=== PATIENT | female | born 1950 | race Caucasian/White ===

== ENCOUNTER 2018-07-28 10:05 | Emergency (ER) | payer OTHER ==
[~2018-07-28] VITALS: Ht 152.4 cm; Wt 81.7 kg
[~2018-07-28 10:05] MED LIST: ASPI81EC PO; Aspirin EC81 MG PO; B-1100 MG PO; CHOL10002 PO; FENO48; FISH1000; Fenofibrate134 MG PO; Flagyl500 MG PO; GLYB5 PO; HUMALOG; HUMALOG KW200 UNIT/1 SQ; IBUP800 PO; INSULANI SC; INSULANPEN SC; LEVFLO500 PO; LOSARTAN PO; LOSHYD PO; Lovastatin20 MG PO; METF500; METF500 PO; METO25ER; METO25ER PO; NAPR500 PO; OMEP20ER PO; OXYACE5T PO; Percocet 5-3251 EACH PO; VITAMIN D PO; [UNRECOGNIZED DRUG - OTHER]
== END 2018-07-28 11:28 | disposition home or self-care (01) ==
LOC: ER 10:05
DX: S16.1XXA Strain of muscle, fascia and tendon at neck level, initial encounter (principal); S39.012A Strain of muscle, fascia and tendon of lower back, initial encounter; Z88.5 Allergy status to narcotic agent; Z88.4 Allergy status to anesthetic agent; Z79.4 Long term (current) use of insulin; Z79.82 Long term (current) use of aspirin; V43.52XA Car driver injured in collision with other type car in traffic accident, initial encounter
CPT/HCPCS: 72040; 72100; 99284-25

== ENCOUNTER → 2020-04-05 | Outpatient (CLI) | payer MEDICARE, OTHER ==
[2020-04-05 08:39] LABS: Source, Urine Clean Catch
[2020-04-05 08:41] LABS: BASOPHILS ABSOLUTE AUTO 0.02 K/mm3 (0.00-0.23); BASOPHILS PERCENT AUTO 0 % (0-2); EOSINOPHILS ABSOLUTE AUTO 0.07 K/mm3 (0.00-0.68); EOSINOPHILS PERCENT AUTO 1 % (0-6); Hematocrit 40.7 % (33.0-51.0); Hemoglobin 13.6 g/dL (11.5-16.0); IMMATURE GRAN ABSOLUTE AUTO 0.04 K/mm3 (0.00-0.10); IMMATURE GRAN PERCENT AUTO 0 % (0-1); LYMPHOCYTES ABSOLUTE AUTO 1.62 K/mm3 (0.84-5.20); LYMPHOCYTES PERCENT AUTO 18 % (21-46); MONOCYTES ABSOLUTE AUTO 0.58 K/mm3 (0.16-1.47); MONOCYTES PERCENT AUTO 6 % (4-13); Mean Corpuscular HGB 28.3 pg (26.0-34.0); Mean Corpuscular HGB Conc 33.4 g/dL (31.5-36.5); Mean Corpuscular Volume 85 fL (80-100); NEUTROPHILS ABSOLUTE AUTO 6.73 K/mm3 (1.96-9.15); NEUTROPHILS PERCENT AUTO 74 % (41-73); Platelet Count 268 K/mm3 (150-400); RDW Coefficient Variation 13.5 % (11.7-14.2); RDW Standard Deviation 41.4 fL (35.1-46.3); White Blood Cell Count 9.06 K/mm3 (4.00-11.30)
[2020-04-05 08:44] LABS: Bacteria Few /hpf; Squamous Epithelial Cells Mod /hpf (Few); White Blood Cells, Urine 0-2 /hpf (0-5)
[2020-04-05 08:49] LABS: Alanine Aminotransfer (ALT/SGP 47 U/L (12-78); Albumin, Blood 3.9 g/dL (3.4-5.0); Alk Phos 59 U/L (40-126); Anion Gap 14 mmol/L (6-16); Aspartate Aminotrans (AST/SGOT 29 U/L (12-37); Bilirubin, Total 0.4 mg/dL (0.1-1.0); Blood Urea Nitrogen 19 mg/dL (8-24); Bun/Creatinine Ratio 27.9 (12.0-20.0); CO2, Blood 28 mmol/L (21-32); Calcium, Blood 9.3 mg/dL (8.5-10.1); Chloride, Blood 101 mmol/L (98-108); Creatinine, Blood 0.68 mg/dL (0.40-1.00); Glomerular Filtration Rate >60 (60-); Glucose, Blood 132 mg/dL (70-99); Potassium, Blood 3.8 mmol/L (3.5-5.5); Sodium, Blood 143 mmol/L (136-145); Total Protein, Blood 7.9 g/dL (6.4-8.2)
[2020-04-05 20:30] LABS: Campylobacter Sp Not Detected (NOT DETECT)
[2020-04-05 20:31] LABS: Adenovirus F 40/41 Not Detected (NOT DETECT); Astrovirus Not Detected (NOT DETECT); Cryptosporidium Not Detected (NOT DETECT); Cyclospora Cayetanensis Not Detected (NOT DETECT); E. Coli O157 Not Detected (NOT DETECT); Entamoeba Histolytica Not Detected (NOT DETECT); Enteroaggregative E. coli-EAEC Not Detected (NOT DETECT); Enteropathogenic E. coli-EPEC Not Detected (NOT DETECT); Enterotoxigenic E. coli-ETEC Not Detected (NOT DETECT); Giardia Lamblia Not Detected (NOT DETECT); Norovirus GI/GII Not Detected (NOT DETECT); Plesiomonas Shigelloides Not Detected (NOT DETECT); Rotavirus A Not Detected (NOT DETECT); Salmonella Sp Not Detected (NOT DETECT); Sapovirus Not Detected (NOT DETECT); Shiga Toxin-prod E. coli-STEC Not Detected (NOT DETECT); Shigella/Enteroin E. coli-EIEC Not Detected (NOT DETECT); Vibrio Cholerae Not Detected (NOT DETECT); Vibrio Sp Not Detected (NOT DETECT); Yersinia Enterocolitica Not Detected (NOT DETECT)
== END | disposition home or self-care (01) ==
LOC: LAB EV 08:33 → LAB SHORT 08:33
PROVIDERS: General Practice
DX: R10.31 Right lower quadrant pain (principal); R31.21 Asymptomatic microscopic hematuria; R19.7 Diarrhea, unspecified
CPT/HCPCS: 0097U; 80053; 81015; 85025

== ENCOUNTER 2023-05-27 07:10 | Inpatient (IN) | payer MEDICARE, OTHER ==
[~2023-05-27] VITALS: Ht 154.9 cm; Wt 69.4 kg
[2023-05-27 08:15] LABS: BASOPHILS ABSOLUTE AUTO 0.03 K/mm3 (0.00-0.23); BASOPHILS PERCENT AUTO 0 % (0-2); EOSINOPHILS ABSOLUTE AUTO 0.15 K/mm3 (0.00-0.68); EOSINOPHILS PERCENT AUTO 2 % (0-6); Hematocrit 40.1 % (33.0-51.0); Hemoglobin 13.3 g/dL (11.5-16.0); IMMATURE GRAN ABSOLUTE AUTO 0.04 K/mm3 (0.00-0.10); IMMATURE GRAN PERCENT AUTO 1 % (0-1); LYMPHOCYTES ABSOLUTE AUTO 1.52 K/mm3 (0.84-5.20); LYMPHOCYTES PERCENT AUTO 21 % (21-46); MONOCYTES ABSOLUTE AUTO 0.46 K/mm3 (0.16-1.47); MONOCYTES PERCENT AUTO 6 % (4-13); Mean Corpuscular HGB 28.3 pg (26.0-34.0); Mean Corpuscular HGB Conc 33.2 g/dL (31.5-36.5); Mean Corpuscular Volume 85 fL (80-100); Mean Platelet Volume 9.2 fL (9.1-12.4); NEUTROPHILS ABSOLUTE AUTO 4.98 K/mm3 (1.96-9.15); NEUTROPHILS PERCENT AUTO 69 % (41-73); Platelet Count 290 K/mm3 (150-400); RDW Coefficient Variation 13.4 % (11.7-14.2); RDW Standard Deviation 42.2 fL (35.1-46.3); White Blood Cell Count 7.18 K/mm3 (4.00-11.30)
[2023-05-27 08:31] LABS: Albumin/Globulin Ratio 1.1 (0.8-1.8); Bilirubin, Total 0.4 mg/dL (0.1-1.0); Bun/Creatinine Ratio 37.9 (12.0-20.0); Calcium, Blood 9.6 mg/dL (8.5-10.1); Creatinine, Blood 0.4 mg/dL (0.40-1.00); Globulin, Blood 3.5 g/dL (2.2-4.0); Magnesium, Blood 1.9 mg/dL (1.6-2.4); Potassium, Blood 4.5 mmol/L (3.5-5.5); Total Protein, Blood 7.5 g/dL (6.4-8.2)
[2023-05-27] MEDS ORDERED: INSULANI SC (12:55)
[2023-05-27] MEDS ORDERED: METF500C PO (12:59)
[2023-05-27] MEDS ORDERED: ROSU10TA PO (13:01)
[2023-05-27] MEDS ORDERED: OZEMPIC1 MG/0.72 SC (13:04)
[2023-05-27] MEDS ORDERED: LOSA25 PO (13:05)
--- NOTE | 2023-05-27 13:35 | NUR ---
RECEIVED REPORT AND ASSUMED CARE OF PT ON MEDICAL FLOOR. PT A&OX4. VSS, RECHECKED PT'S BLOOD GLUCOSE AT HER REQUEST, IT REMAINS WITHIN THE NORMAL RANGE. PT'S HOME MEDICATIONS REVIEWED AND UPDATED. PT IS A STANDBY ASSIST TO THE BATHROOM. NPO AT THIS TIME [place] [id number] TODAY. STAFF AT BEDSIDE PERFORMING CAROTID ULTRASOUND AT THIS TIME. CALL LIGHT IN REACH, FAMILY AT BEDSIDE.
[2023-05-27 17:17] VITALS: BP 143/79
--- NOTE | 2023-05-27 19:04 | NUR ---
SHIFT SUMMARY: ALTAF IS A&OX4. VSS, NO ACUTE EVENTS THIS SHIFT. THE FIRST PORTION OF THE STRESS TEST WAS COMPLETED TODAY, PT TO TAKE IN NO CAFFEINE AFTER 1900 TODAY AND BE NPO AFTER MIDNIGHT. SHE IS A STANDBY ASSIST FOR SAFETY REASONS ONLY, SHE DOES NOT REQUIRE ANY ASSISTANCE. TELE IN PLACE, NSR THIS SHIFT. SHE IS URINATING WITHOUT DIFFICULTY AND TOLERATING PO INTAKE WELL. FAMILY AT BEDSIDE. SHE IS LYING IN BED WITH THE CALL LIGHT IN REACH. SHE DOES PREFER TO SIT UP IN THE RECLINER, STATING THAT IT IS MORE COMFORTABLE. REPORT GIVEN TO GEOSCIENCE LABORATORY TECHNICIAN RN.
[2023-05-27 19:29] VITALS: BP 109/66
--- NOTE | 2023-05-27 21:32 | NUR ---
TELEMETRY EVENT: LEYDI SHANNON REPORTS 20 SECOND PAUSE AND REPORTS TO GO INTO PATIENT ROOM. PATIENT ASYMPTOMATIC AND ALERT AND ORIENTED HAVING CONVERSATION. SHE REPORTS SHE FELL ASLEEP IN RECLINER. HOSPITALIST BREN ALEXANDER NOTIFIED AND REPORTS HE WILL LOOK AT HER TELEMETRY STRIP AT THIS TIME. ALSO ORDERED PATIENT LANTUS 28 UNITS BEDTIME AND REPORTS TO GIVE ONLY HALF. PATIENT NPO AFTER MIDNIGHT FOR STRESS TEST PART TWO. TM.
--- NOTE | 2023-05-27 22:17 | NUR ---
HOSPITALIST DR CASPER IN ROOM FOR ASSESSMENT: REPORTS PATIENT IS TO BE NPO, HOLD LOVENOX, TRANSFER TO PCU, LIKELY PACEMAKER TOMORROW. CHARGE NURSE NOTIFIED.
--- NOTE | 2023-05-27 22:33 | NUR ---
TRANSFER TO PCU 11. REPORT GIVEN TO PJ FONSECA. PATIENT TRANSFERING WITH BELONGINGS VIA W/C.
[2023-05-27 22:35] VITALS: BP 141/66
[2023-05-27 23:19] VITALS: BP 145/78
--- NOTE | 2023-05-27 23:58 | NUR ---
TELE EVENT NOTIFIED BY TELE OF A 24 SECOND PAUSE. RHYTHM APPEARS TO BE A 2ND DEGREE TYPE II WITH P WAVES THAT ARE NOT CONDUCTING. UPON ARRIVAL TO THE ROOM, PT IS SURROUNDED BY MULTIPLE STAFF AND IS BEGINNING TO OPEN HER EYES. RHYTHM IS BACK TO SINUS IN THE 60'S AND PT DENIES SYMPTOMS. ZOLL AT THE BEDSIDE AND MONITORING, PADS ARE ON THE PATIENT. DR. CASPER NOTIFIED AND PLAN IS TO CONINUE MONITORING, USE EXTERNAL PACING WHEN NEEDED, AND PREP FOR PACEMAKER IN THE AM. PRIMARY RN FENG UPDATED.
[2023-05-28 04:30] VITALS: BP 134/74
--- NOTE | 2023-05-28 06:33 | NUR ---
SHIFT SUMMARY PATIENT ALERT AND ORIENTED X4. TRANSFERRED TO PCU 11 FROM MEDICAL FLOOR AFTER HAVING A 21.8 SECOND PAUSE. PATIENT HAD A SECOND PAUSE LASTING 24 SECONDS AT 2347, PATIENT WAS ASLEEP AND UNAWARE OF THE EPISODE, WAS ABLE TO BE ROUSED EASILY. NO OTHER EVENTS NOTED. PACER PADS PLACED ON PATIENT AND PLUGGED INTO ZOLL WHICH IS ON TO MONITOR. ATROPINE AT BEDSIDE. PATIENT ON ROOM AIR WITH NO COMPLAINTS OF SHORTNESS OF BREATH. BLOOD PRESSURE STABLE. PATIENT ASSESSED FOR IGNITION RISK AND EDUCATED ON FIRE SAFETY IN THE HOSPITAL. WILL CONTINUE TO MONITOR. CALL LIGHT WITHIN REACH.
[2023-05-28 08:00] VITALS: BP 130/67
[2023-05-28 11:21] VITALS: BP 144/78
[2023-05-28 13:05] VITALS: BP 161/83
--- NOTE | 2023-05-28 13:06 | NUR ---
PAUSE HIGH RAW SUGAR BOILER NOTIFYING STAFF OF PT PAUSE. THIS RN & TILE PRESSER TO PT RM. PT LAYING IN BED, HAD TO BE WOKEN. HIGH RAW SUGAR BOILER REPORTING PT W/ 17 SECOND PAUSE (SEE EVENT STRIP). PT REPORTING FEELING TIRED & DIZZY. VSS. ZOLL AT BEDSIDE. TILE PRESSER NOTIFIED MD GONZALES.
--- NOTE | 2023-05-28 19:00 | NUR ---
RETURNED FROM [employer] SPECIALIST FROM PACER PLACEMENT. DRESSING TO LEFT CHEST WALL DRY AND INTACT. SLING PLACE ON ARM AND EDUCATED REGARDING NOT LIFTING LEFT ARM. VERBALIZES UNDERSTANDING.
[2023-05-28 20:32] VITALS: BP 139/76
--- NOTE | 2023-05-28 20:56 | NUR ---
ASSUMED CARE PT IS A&O X4; SPO2 >92% ON RA; MAP >65; HR IN THE 90'S. PT DENIES CP, SOB, OR NAUSEA. PACEMAKER DRESSING IS NOT SATURATED, NO SWELLING/REDNESS OBSERVED AROUND DRESSING. PT STATES THERE IS SHARP PAIN AT SITE, BUT OTHERWISE NO COMPLAINTS. SLING IN PLACE AND PT AWARE OF LIMITATIONS IN ROM D/T PACEMAKER INSERTION. PT DENIES HAVING ANY IGNITION PARAPHERNILIA; EDUCATION GIVEN REGARDING IGNITION RISK.
[2023-05-29 00:02] VITALS: BP 125/69
--- NOTE | 2023-05-29 00:27 | NUR ---
UPDATE PROVIDER NOTIFIED ABOUT NO VTE PROPHYLAXIS. SCD'S PUT ON PER ORDER
[2023-05-29 04:00] VITALS: BP 113/99
--- NOTE | 2023-05-29 05:22 | NUR ---
SHIFT SUMMARY PT SLEPT T/O MOST OF NIGHT. CONTINUES TO DENY CP, SOB, OR NAUSEA. SLING IN PLACE. NPO SINCE MIDNIGHT. PACEMAKER DRESSING REMAINS FREE OF SATURATION. NO ACUTE EVENTS OVERNIGHT.
[2023-05-29 07:37] VITALS: BP 124/78
--- NOTE | 2023-05-29 11:30 | NUR ---
SAFETY EDUCATION: PT EDUCATED ON FIRE SAFETY AND IGNITION SOURCES AT THE HOSPITAL. PT VOICED UNDERSTANDING.
[2023-05-29 12:25] VITALS: BP 117/73
[2023-05-29 17:02] VITALS: BP 129/84
[2023-05-29] MEDS ORDERED: CEPH500 PO (17:13)
--- NOTE | 2023-05-29 17:53 | NUR ---
DISCHARGE: PT EDUCATED ON POST-PACER D/C INSTRUCTIONS BY THIS RN. EDUCATED PT AND S/O ON MEDICATION CHANGES AND ALL OTHER D/C INSTRUCTIONS. ABLE TO GET DRESSED WITH S/O ASSISTANCE. SLING IN PLACE ON LUE. LEFT UPPER CHEST DRESSING CLEAN, DRY AND INTACT. NO VISIBLE SIGNS OF BLEEDING OR HEMATOMA FORMATION. PT DENIES PAIN. HR 87, BP 129/84. PT DENIES CP/PRESSURE. SPO2 >95% ON RA, DENIES SOB. LAC IV REMOVED, PT TOLERATED WELL. PT WHEELED TO POV BY PRISCILLA FONSECA WITHOUT DIFFICULTY.
== END 2023-05-29 18:15 | disposition home or self-care (01) | DRG 244 ==
LOC: ER 07:10 → MEDS 07:11 → PCU 07:11 → MEDS 12:35 → PCU 22:38
PROVIDERS: Emergency Medicine; ADMIT Internal Medicine
PROC: 0JH606Z Insertion of Pacemaker, Dual Chamber into Chest Subcutaneous Tissue and Fascia, Open Approach (ICD-10-PCS; principal; 2023-05-28)
PROC: 02H63JZ Insertion of Pacemaker Lead into Right Atrium, Percutaneous Approach (ICD-10-PCS; 2023-05-28)
PROC: 02HK3JZ Insertion of Pacemaker Lead into Right Ventricle, Percutaneous Approach (ICD-10-PCS; 2023-05-28)
DX: I49.5 Sick sinus syndrome (principal); I45.5 Other specified heart block; E11.9 Type 2 diabetes mellitus without complications; I10 Essential (primary) hypertension; R55 Syncope and collapse; I77.9 Disorder of arteries and arterioles, unspecified; Z68.28 Body mass index [BMI] 28.0-28.9, adult; G47.33 Obstructive sleep apnea (adult) (pediatric); R54 Age-related physical debility; E66.9 Obesity, unspecified; M54.9 Dorsalgia, unspecified; G89.29 Other chronic pain; E78.00 Pure hypercholesterolemia, unspecified; Z79.4 Long term (current) use of insulin; Z79.82 Long term (current) use of aspirin; Z79.899 Other long term (current) drug therapy; Z98.51 Tubal ligation status; Z90.49 Acquired absence of other specified parts of digestive tract; Z90.710 Acquired absence of both cervix and uterus; Z98.890 Other specified postprocedural states; Z88.5 Allergy status to narcotic agent; Z79.84 Long term (current) use of oral hypoglycemic drugs
CPT/HCPCS: 33208; 36415; 71045; 76937; 78452; 80053; 82947; 83735; 83880; 84484; 85025; 93005; 93010; 93017; 93306; 93880; 96360; 99152; 99153; 99285-25; A9270; A9500; C1781; C1785; C1894; C1898; G0378; J0690; J0706; J1644; J1815; J2250; J2785; J3010; J7030; J7040

== ENCOUNTER → 2023-09-14 | Outpatient (CLI) | payer MEDICARE, OTHER ==
[~2023-09-14] MED LIST changes: +CEPH500 PO; +LOSA25 PO; +METF500C PO; +OZEMPIC1 MG/0.72 SC; +ROSU10TA PO
== END ==
LOC: LAB SHORT 07:47 → LAB 07:47
DX: M77.42 Metatarsalgia, left foot (principal); L97.529 Non-pressure chronic ulcer of other part of left foot with unspecified severity; M79.672 Pain in left foot
CPT/HCPCS: 88305; 88311

== ENCOUNTER → 2023-09-30 | Outpatient (CLI) | payer MEDICARE, OTHER | LOC: LAB 09:00 → LAB SHORT 09:00 | DX: Z48.89 Encounter for other specified surgical aftercare (principal) | CPT/HCPCS: 87070; 87205 ==

== ENCOUNTER → 2024-05-01 | Outpatient (CLI) | payer MEDICARE, OTHER ==
[2024-05-01 10:48] LABS: BASOPHILS ABSOLUTE AUTO 0.04 K/mm3 (0.00-0.23); BASOPHILS PERCENT AUTO 1 % (0-2); EOSINOPHILS ABSOLUTE AUTO 0.07 K/mm3 (0.00-0.68); EOSINOPHILS PERCENT AUTO 1 % (0-6); Hematocrit 41.3 % (33.0-51.0); Hemoglobin 13.7 g/dL (11.5-16.0); IMMATURE GRAN ABSOLUTE AUTO 0.03 K/mm3 (0.00-0.10); IMMATURE GRAN PERCENT AUTO 0 % (0-1); LYMPHOCYTES ABSOLUTE AUTO 1.92 K/mm3 (0.84-5.20); LYMPHOCYTES PERCENT AUTO 26 % (21-46); MONOCYTES PERCENT AUTO 6 % (4-13); Mean Corpuscular HGB 28.2 pg (26.0-34.0); Mean Corpuscular HGB Conc 33.2 g/dL (31.5-36.5); Mean Corpuscular Volume 85 fL (80-100); Mean Platelet Volume 9.3 fL (9.1-12.4); NEUTROPHILS ABSOLUTE AUTO 4.81 K/mm3 (1.96-9.15); NEUTROPHILS PERCENT AUTO 66 % (41-73); Platelet Count 283 K/mm3 (150-400); RDW Coefficient Variation 13.5 % (11.7-14.2); RDW Standard Deviation 42.4 fL (35.1-46.3); Red Blood Cell Count 4.85 M/mm3 (3.80-5.20); White Blood Cell Count 7.27 K/mm3 (4.00-11.30)
[2024-05-01 11:08] LABS: Albumin, Blood 4.2 g/dL (3.4-5.0); Albumin/Globulin Ratio 1.2 (0.8-1.8); Bilirubin, Total 0.4 mg/dL (0.1-1.0); Bun/Creatinine Ratio 44.4 (12.0-20.0); Calcium, Blood 9.4 mg/dL (8.5-10.1); Creatinine, Blood 0.43 mg/dL (0.40-1.00); Globulin, Blood 3.6 g/dL (2.2-4.0); Potassium, Blood 3.7 mmol/L (3.5-5.5); Total Protein, Blood 7.8 g/dL (6.4-8.2)
== END | disposition home or self-care (01) ==
LOC: LAB SHORT 09:42 → LAB 09:42
PROVIDERS: Physician Assistant
DX: R42 Dizziness and giddiness (principal)
CPT/HCPCS: 80053; 85025

== ENCOUNTER → 2025-01-06 | Outpatient (CLI) | payer MEDICARE, OTHER ==
[2025-01-06 14:21] LABS: Stool Occult Bld Immuno 1 Negative (NEGATIVE)
== END ==
LOC: LAB SHORT 09:30 → LAB 09:30
PROVIDERS: Physician Assistant
DX: Z12.11 Encounter for screening for malignant neoplasm of colon (principal)
CPT/HCPCS: G0328

== ENCOUNTER → 2025-03-19 | Outpatient (CLI) | payer MEDICARE, OTHER | LOC: LAB 17:57 → LAB SHORT 17:57 | DX: N39.0 Urinary tract infection, site not specified (principal) | CPT/HCPCS: 87077; 87086; 87186 ==

== ENCOUNTER → 2025-09-13 | Outpatient (CLI) | payer MEDICARE, OTHER | LOC: LAB 11:03 | DX: E11.65 Type 2 diabetes mellitus with hyperglycemia (principal); E11.42 Type 2 diabetes mellitus with diabetic polyneuropathy; E11.59 Type 2 diabetes mellitus with other circulatory complications; E11.69 Type 2 diabetes mellitus with other specified complication; Z79.4 Long term (current) use of insulin ==